=== PATIENT | male | born 1985 | race Caucasian/White ===

== ENCOUNTER → 2019-04-10 | Outpatient (CLI) | payer OTHER ==
[~2019-04-10] MED LIST: NORCO 325 MG-51 TAB PO; PREDNISONE20 MG PO; PROAIR HFA0.09 MG/AC IH; VENTOLIN0.09 MG IH
== END ==
LOC: BHSO 13:58
DX: F31.81 Bipolar II disorder (principal)

== ENCOUNTER → 2019-04-25 | Outpatient (CLI) | payer OTHER | LOC: BHSO 08:47 | DX: F31.81 Bipolar II disorder (principal) | CPT/HCPCS: G0463 ==

== ENCOUNTER → 2019-07-10 | Outpatient (CLI) | payer OTHER | LOC: BHSO 09:17 | DX: F41.1 Generalized anxiety disorder (principal) | CPT/HCPCS: G0463 ==

== ENCOUNTER → 2020-01-04 | Outpatient (CLI) | payer OTHER | LOC: BHSO 08:01 | DX: F31.81 Bipolar II disorder (principal) | CPT/HCPCS: G0463 ==

== ENCOUNTER 2020-06-23 19:43 | Emergency (ER) | payer BC ==
[2020-06-23 19:55] VITALS: BP 144/92; TEMP 97.8
[2020-06-23 21:00] VITALS: PULSE 86
== END 2020-06-23 21:03 | disposition home or self-care (01) ==
LOC: COL.ER 19:43
DX: S43.005A Unspecified dislocation of left shoulder joint, initial encounter (principal); S01.511A Laceration without foreign body of lip, initial encounter; Z87.828 Personal history of other (healed) physical injury and trauma; W19.XXXA Unspecified fall, initial encounter; Y92.009 Unspecified place in unspecified non-institutional (private) residence as the place of occurrence of the external cause
CPT/HCPCS: J2060; J3010

== ENCOUNTER → 2020-07-18 | Outpatient (CLI) | payer BC | LOC: BHSO 08:43 | DX: F31.81 Bipolar II disorder (principal) | CPT/HCPCS: G0463 ==